=== PATIENT | male | born 1975 | race Caucasian/White ===

== ENCOUNTER 2022-07-23 19:29 | Emergency (ER) | payer BC, OTHER ==
[2022-07-23 19:45] VITALS: BP 148/95; PULSE 69
== END 2022-07-23 20:17 | disposition home or self-care (01) ==
LOC: KA.ED 19:29
DX: S92.532A Displaced fracture of distal phalanx of left lesser toe(s), initial encounter for closed fracture (principal); I10 Essential (primary) hypertension; Z88.8 Allergy status to other drugs, medicaments and biological substances; W20.8XXA Other cause of strike by thrown, projected or falling object, initial encounter
CPT/HCPCS: 73630-LT; 99283

== ENCOUNTER 2024-12-02 10:30 | Emergency (ER) | payer BC, OTHER ==
[2024-12-02] MEDS: Tetracaine HCl/PF 0.5% 4 ML Bottle EYELF ONE (11:31)
[2024-12-02] MEDS: Fluorescein 1 MG Ophth Strip EYELF ONE (11:32)
[2024-12-02] MEDS: Ciprofloxacin 0.3% Ophth Soln 5 ML Bottle EYELF SCH (11:34)
[2024-12-02 11:36] VITALS: BP 124/83; PULSE 72
== END 2024-12-02 11:42 | disposition home or self-care (01) ==
LOC: KA.ED 10:30
DX: T15.02XA Foreign body in cornea, left eye, initial encounter (principal); I10 Essential (primary) hypertension; Z88.8 Allergy status to other drugs, medicaments and biological substances; Z79.899 Other long term (current) drug therapy; X58.XXXA Exposure to other specified factors, initial encounter
CPT/HCPCS: 65220; 99283; 99283-25; A9270-GY; J3490